=== PATIENT | male | born 1955 | race Caucasian/White ===

== ENCOUNTER 2023-08-10 16:29 | Inpatient (IN) | payer MEDICARE, MEDICAID ==
[~2023-08-10] VITALS: Ht 190.5 cm; Wt 122.0 kg
[~2023-08-10 16:29] MED LIST: TAMS0.4C36 PO
[2023-08-10 17:27] LABS: Basophils # (auto) 0 10 ^3/uL (0-0.2); Basophils % (auto) 0.2 % (0.0-2.0); Eosinophils # (auto) 0.3 10 ^3/uL (0-0.8); Eosinophils % (auto) 1.8 % (0.0-7.0); Hematocrit 33.7 % (41.0-53.0); Hemoglobin 11.1 g/dL (13.5-17.5); Lymphocytes # (auto) 1.3 10 ^3/uL (0.4-5.4); Lymphocytes % (auto) 7.6 % (10.0-50.0); Mean Corpuscular Hemoglobin 29.8 pg (28.0-32.0); Mean Corpuscular Volume 90.3 fL (80.0-100.0); Monocytes # (auto) 1.8 10 ^3/uL (0-1.3); Neutrophils # (auto) 13.3 10 ^3/uL (1.6-8.6); Neutrophils % (auto) 79.4 % (37.0-80.0); Red Blood Cells 3.73 10^6/uL (4.5-5.90); White Blood Cell 16.8 10^3/uL (4.4-10.8)
[2023-08-10 17:30] VITALS: O2SAT 95
[2023-08-10 17:45] LABS: Alanine Aminotransferase 222 U/L (7-40); Albumin 3.5 g/dL (3.2-4.8); Alkaline Phosphatase 583 U/L (46-116); Anion Gap 10 (5-15); Aspartate Aminotransferase 278 U/L (13-40); BUN/Creatinine Ratio 20.5 (10.0-20.0); Bilirubin, Total 1.1 mg/dL (0.2-1.0); Blood Urea Nitrogen 31 mg/dL (9-23); Carbon Dioxide 27 mmol/L (20-30); Chloride 93 mmol/L (98-107); Glucose 365 mg/dL (74-106); Potassium 3.5 mmol/L (3.5-5.1); Sodium 130 mmol/L (136-145); Total Protein 5.7 g/dL (5.7-8.2)
[2023-08-10] MEDS: SODIUM CHLORIDE 0.9% 1,000 ML IVB ONE (18:55)
[2023-08-10 19:30] VITALS: O2SAT 97
[2023-08-10 19:51] LABS: Lactic Acid w/Reflex 2.2 mmol/L (0.4-2.0)
[2023-08-10] MEDS: ACETAMINOPHEN 325 MG TAB PO ONE (19:55)
[2023-08-10 20:13] LABS: Urine Bacteria NONE SEEN /hpf (None Seen); Urine Blood Negative /uL (Negative); Urine Clarity HAZY (Clear); Urine Color Yellow (Yellow); Urine Mucus FEW (None Seen); Urine Protein, UAD 1+ (Negative); Urine Specific Gravity 1.022 (1.001-1.035); Urine Urobilinogen Normal (Negative); Urine WBC 1 /hpf (0 - 3); Urine pH 5.5 (5.0-8.0)
[2023-08-10] MEDS: PIPERACILLIN-TAZOB 3.375GM 100 ML IV ONE (20:22)
[2023-08-10] MEDS ORDERED: ONDANSETRON HCL 4 MG/2 ML VIAL IV PRN (20:45)
[2023-08-10] MEDS ORDERED: MORPHINE SULFATE INJ 2 MG/ml SYRG IV PRN (20:45)
[2023-08-10] MEDS ORDERED: hydrALAZINE HCL 20 MG/ML VL IV PRN (20:45)
[2023-08-10] MEDS ORDERED: DEXTROSE (50%) 50ML SYRG IV PRN (20:45)
[2023-08-10] MEDS: SODIUM CHLORIDE 0.9% 1,000 ML IV SCH (20:45)
[2023-08-10 21:53] LABS: INR 1.02 (0.9-1.15); Partial Thromboplastin Time 29.6 SEC (24.5-34.5); Prothrombin Time 10.7 sec (9.3-11.8)
[2023-08-10] MEDS: InsuLIN REG 1unit/0.01ml Soln (100units/ml) SC SCH (23:50)
[2023-08-10] MEDS: ACCU-CHEK COMFORT CURVE STRIP VI SCH (23:51)
[2023-08-11] VITALS (8 sets, daily range): BP systolic 128–171; BP diastolic 66–93; PULSE 85–93; RESP 16–20; TEMP 98–99.7; O2SAT 92–97
[2023-08-11 00:35] LABS: Rapid Influenza A Negative (Negative); Rapid Influenza B Negative (Negative)
[2023-08-11 00:36] LABS: COVID19 ANTIGEN SOFIA FIA NEGATIVE (NEGATIVE)
[2023-08-11] MEDS ORDERED: INSLANTI SC (03:05)
[2023-08-11] MEDS ORDERED: PRED2.5T4 PO (03:05)
[2023-08-11] MEDS ORDERED: APIX5TAB PO (03:05)
[2023-08-11] MEDS ORDERED: LOSA100T58 PO (03:05)
[2023-08-11] MEDS ORDERED: SIMV40TA18 PO (03:05)
[2023-08-11] MEDS ORDERED: SEMA4INJ SC (03:05)
[2023-08-11] MEDS ORDERED: METF-372 PO (03:05)
[2023-08-11] MEDS ORDERED: ABIR250T PO (03:05)
[2023-08-11] MEDS: PIPERACILLIN-TAZOB 3.375GM 100 ML IV SCH (03:15)
[2023-08-11 07:08] LABS: Basophils # (auto) 0.1 10 ^3/uL (0-0.2); Basophils % (auto) 0.4 % (0.0-2.0); Eosinophils # (auto) 0.5 10 ^3/uL (0-0.8); Eosinophils % (auto) 4.1 % (0.0-7.0); Hematocrit 31.9 % (41.0-53.0); Hemoglobin 10.4 g/dL (13.5-17.5); Lymphocytes % (auto) 7.5 % (10.0-50.0); Mean Corpuscular Hemoglobin 29.9 pg (28.0-32.0); Mean Corpuscular Hgb Conc. 32.6 g/dL (32.0-36.0); Mean Corpuscular Volume 91.9 fL (80.0-100.0); Monocytes # (auto) 1.5 10 ^3/uL (0-1.3); Monocytes % (auto) 11.2 % (0.0-12.0); Neutrophils # (auto) 10.4 10 ^3/uL (1.6-8.6); Neutrophils % (auto) 76.8 % (37.0-80.0); Nucleated Red Blood Cells % 0.1 %; Red Blood Cells 3.47 10^6/uL (4.5-5.90); Red Cell Distribution Width 14.1 % (11.8-14.3); White Blood Cell 13.5 10^3/uL (4.4-10.8)
[2023-08-11 07:26] LABS: Alanine Aminotransferase 149 U/L (7-40); Albumin 3.4 g/dL (3.2-4.8); Alkaline Phosphatase 468 U/L (46-116); Anion Gap 7 (5-15); Aspartate Aminotransferase 121 U/L (13-40); BUN/Creatinine Ratio 16.1 (10.0-20.0); Bilirubin, Total 1.1 mg/dL (0.2-1.0); Blood Urea Nitrogen 18 mg/dL (9-23); Calcium 8.8 mg/dL (8.5-10.1); Carbon Dioxide 28 mmol/L (20-30); Chloride 98 mmol/L (98-107); Potassium 3.1 mmol/L (3.5-5.1); Sodium 133 mmol/L (136-145); Total Protein 5.6 g/dL (5.7-8.2)
[2023-08-11 07:31] LABS: Glucose 156 mg/dL (74-106)
[2023-08-11] MEDS ORDERED: fentaNYL CITRATE 100 MCG/2 ML VL ONE (10:45)
[2023-08-11] MEDS ORDERED: ETOMIDATE (2MG/ML) 20ML VIAL IV ONE (10:46)
[2023-08-11] MEDS ORDERED: SODIUM CHLORIDE LOCK 10 ML ONE (10:46)
[2023-08-11] MEDS ORDERED: MIDAZOLAM HCL 2MG/2ML 2ml VIAL (1mg/ml) ONE (10:46)
[2023-08-11] MEDS ORDERED: MEPERIDINE HCL (50 MG/ML) 1 ML VIAL ONE (10:46)
[2023-08-11] MEDS ORDERED: ONDANSETRON HCL 4 MG/2 ML VIAL ONE (10:46)
[2023-08-11] MEDS ORDERED: GLYCOPYRROLATE 0.2 MG/ML 1ML VIAL ONE (10:46)
[2023-08-11] MEDS ORDERED: ROCURONIUM 10MG/ML 10ML VIAL IV ONE (10:46)
[2023-08-11] MEDS ORDERED: NEOSTIGMINE 1 MG/ML INJ (10mg/10ML VIAL) ONE (10:46)
[2023-08-11] MEDS ORDERED: DexAMETHasone SOD PHOS 10MG/1ML VIAL INJ ONE (10:46)
[2023-08-11] MEDS ORDERED: LIDOCAINE HCL 2% TOP JELLY 5ML TOP ONE (10:50)
[2023-08-11] MEDS ORDERED: HYDROmorphone HCL 2 MG/ML VL/or syr IV PRN ×2 (11:00)
[2023-08-11] MEDS ORDERED: METOCLOPRAMIDE HCL 5MG/ml INJ 2ml VIAL IV PRN (11:00)
[2023-08-11] MEDS: ACCU-CHEK COMFORT CURVE STRIP VI ONE (11:00)
[2023-08-11] MEDS ORDERED: MORPHINE SULFATE INJ 2 MG/ml SYRG IV PRN (11:00)
[2023-08-11] MEDS: LIDOCAINE W/ EPINEPHRINE 1% 20ML VIAL ONE (11:02)
[2023-08-11] MEDS ORDERED: KETAMINE 50mg/ML 1ml syringe ONE (11:44)
[2023-08-11] MEDS ORDERED: SUGAMMADEX 200mg/2ml Vial (100MG/ML) IV ONE (11:57)
[2023-08-11] MEDS: LIDOCAINE 1% INJ PF 5ML AMP ONE (12:40)
[2023-08-11] MEDS ORDERED: ACETAMINOPHEN/CODEINE#3 (300/30mg) TAB PO PRN (13:00)
[2023-08-11] MEDS: POTASSIUM CHLORIDE 40 MEQ, LIDOCAINE 1% (LOCAL ANESTH.) 4 ML in SODIUM CHL 0.9% 250 ML IV ONE (14:44)
[2023-08-11] MEDS ORDERED: SUCCINYLCHOLINE CHLORIDE 20 MG/ML 10ML VIAL IV ONE (15:44)
[2023-08-11] MEDS ORDERED: METO100T18 PO (17:02)
[2023-08-12] VITALS (8 sets, daily range): BP systolic 126–155; BP diastolic 56–73; PULSE 78–100; RESP 18–20; TEMP 37.4; O2SAT 90–98
[2023-08-12] MEDS: InsuLIN REG 1unit/0.01ml Soln (100units/ml) SC SCH (06:34)
[2023-08-12] MEDS: ACCU-CHEK COMFORT CURVE STRIP VI SCH (06:36)
[2023-08-12 07:18] LABS: Hematocrit 29.5 % (41.0-53.0); Hemoglobin 9.8 g/dL (13.5-17.5); Mean Corpuscular Hgb Conc. 33.2 g/dL (32.0-36.0); Mean Corpuscular Volume 90.4 fL (80.0-100.0); Red Blood Cells 3.26 10^6/uL (4.5-5.90); Red Cell Distribution Width 13.9 % (11.8-14.3)
[2023-08-12 07:19] LABS: Alanine Aminotransferase 163 U/L (7-40); Albumin 3.1 g/dL (3.2-4.8); Alkaline Phosphatase 496 U/L (46-116); Anion Gap 5 (5-15); Aspartate Aminotransferase 144 U/L (13-40); BUN/Creatinine Ratio 11.8 (10.0-20.0); Blood Urea Nitrogen 14 mg/dL (9-23); Calcium 8.4 mg/dL (8.5-10.1); Carbon Dioxide 28 mmol/L (20-30); Chloride 98 mmol/L (98-107); Glucose 204 mg/dL (74-106); Potassium 3.7 mmol/L (3.5-5.1); Sodium 131 mmol/L (136-145)
[2023-08-12 07:20] LABS: Bilirubin, Total 0.9 mg/dL (0.2-1.0); Total Protein 5.2 g/dL (5.7-8.2)
[2023-08-12 07:26] LABS: Basophils % (manual) 0 (0.0-2.0); Blast Cells 0; Eosinophils % (manual) 0 (0-7); Metamyelocytes % 0; Myelocytes % 0; Promyelocytes % 0; Reactive Lymphocytes 0
[2023-08-12 07:59] LABS: Band Neutrophils % (manual) 7; Lymphocytes % (manual) 18 (10.0-50.0); Monocytes % (manual) 6 (0-12); Platelet Estimate Adequate
[2023-08-13 01:00] VITALS: BP 144/66; PULSE 85; RESP 20; TEMP 98.6; O2SAT 93
[2023-08-13 05:00] VITALS: BP 147/68; PULSE 77; RESP 20; TEMP 98.4; O2SAT 93
[2023-08-13 06:25] LABS: Basophils # (auto) 0 10 ^3/uL (0-0.2); Basophils % (auto) 0.6 % (0.0-2.0); Eosinophils # (auto) 0.4 10 ^3/uL (0-0.8); Eosinophils % (auto) 5.1 % (0.0-7.0); Hematocrit 28.7 % (41.0-53.0); Hemoglobin 9.7 g/dL (13.5-17.5); Lymphocytes # (auto) 0.9 10 ^3/uL (0.4-5.4); Mean Corpuscular Hemoglobin 30.3 pg (28.0-32.0); Mean Corpuscular Hgb Conc. 33.7 g/dL (32.0-36.0); Mean Corpuscular Volume 89.9 fL (80.0-100.0); Monocytes # (auto) 0.9 10 ^3/uL (0-1.3); Monocytes % (auto) 12.3 % (0.0-12.0); Neutrophils # (auto) 5.3 10 ^3/uL (1.6-8.6); Red Blood Cells 3.19 10^6/uL (4.5-5.90); Red Cell Distribution Width 14.1 % (11.8-14.3); White Blood Cell 7.5 10^3/uL (4.4-10.8)
[2023-08-13 06:36] LABS: Alanine Aminotransferase 105 U/L (7-40); Alkaline Phosphatase 482 U/L (46-116); Anion Gap 5 (5-15); Aspartate Aminotransferase 58 U/L (13-40); BUN/Creatinine Ratio 8.3 (10.0-20.0); Blood Urea Nitrogen 8 mg/dL (9-23); Calcium 8.8 mg/dL (8.7-10.4); Carbon Dioxide 29 mmol/L (20-30); Chloride 102 mmol/L (98-107); Glucose 179 mg/dL (74-106); Potassium 3.7 mmol/L (3.5-5.1)
[2023-08-13 06:37] LABS: Bilirubin, Total 0.6 mg/dL (0.2-1.0); Sodium 136 mmol/L (136-145); Total Protein 5.4 g/dL (5.7-8.2)
[2023-08-13 07:30] VITALS: TEMP 36.9
[2023-08-13 08:43] VITALS: BP 148/77; PULSE 77; RESP 18; TEMP 97.8; O2SAT 96
[2023-08-13 12:51] VITALS: BP 138/60; PULSE 71; RESP 18; TEMP 98.1; O2SAT 94
== END 2023-08-13 15:45 | DRG 853 ==
LOC: EDBD 16:29 → ER 16:29 → OVERFLOW 20:44 → CENTRAL 20:44
PROVIDERS: ADMIT Nurse Practitioner; ATTEND Internal Medicine
PROC: 0FT44ZZ Resection of Gallbladder, Percutaneous Endoscopic Approach (ICD-10-PCS; principal; 2023-08-11 11:27)
DX: A41.9 Sepsis, unspecified organism (principal); N17.0 Acute kidney failure with tubular necrosis; K81.0 Acute cholecystitis; K82.A2 Perforation of gallbladder in cholecystitis; K82.A1 Gangrene of gallbladder in cholecystitis; I10 Essential (primary) hypertension; E78.5 Hyperlipidemia, unspecified; K66.0 Peritoneal adhesions (postprocedural) (postinfection); Z20.822 Contact with and (suspected) exposure to COVID-19; K76.0 Fatty (change of) liver, not elsewhere classified; E66.01 Morbid (severe) obesity due to excess calories; E11.9 Type 2 diabetes mellitus without complications; R79.89 Other specified abnormal findings of blood chemistry; Z85.46 Personal history of malignant neoplasm of prostate; Z82.0 Family history of epilepsy and other diseases of the nervous system; Z92.3 Personal history of irradiation; Z68.33 Body mass index [BMI] 33.0-33.9, adult; Z86.718 Personal history of other venous thrombosis and embolism
CPT/HCPCS: 36415; 71045; 74176; 76705; 80053; 81001; 82962; 83036; 83605; 83735; 84484; 85007; 85025; 85027; 85610; 85730; 86850; 86900; 86901; 87040; 87426; 87804; 93005; 96361; 96365; 97110; 97116; 97163; 97530; 99291; G0378; J0330; J1100; J1815; J2001; J2250; J2405; J2543